=== PATIENT | male | born 2000 | race African-American/Black ===

== ENCOUNTER 2018-11-21 20:47 | Emergency (ER) | payer BC, OTHER ==
[2018-11-21 20:53] VITALS: BP 137/96; PULSE 62; TEMP 98.4; BMI 23.1
[2018-11-21] MEDS ORDERED: ACETAMINOPHEN 325 MG TABLET (FP) PO ONE (22:44)
[2018-11-21] MEDS ORDERED: ACETAMINOPHEN 325 MG TABLET (FP) ONE (22:47)
[2018-11-21] MEDS ORDERED: DIPHTH,PERTUSS(ACELL),TET 0.5 ML DISP.SYRIN IM ONE ×2 (23:29→23:51)
--- NOTE | 2018-11-21 23:29 | PDOC ---
*Physical Exam - Vital Signs Last Vital Signs Temp Pulse Resp BP Pulse Ox 98.4 F 62 18 137/96 100 11/21/18 20:50 11/21/18 20:50 11/21/18 20:50 11/21/18 20:50 11/21/18 20:50 ED Treatment Course - Medications Given in the ED: ED Medications Discontinued Medications Generic Name Dose Route Start Last Admin Trade Name Nkechi PRN Reason Stop Dose Admin Acetaminophen 975 mg 11/21/18 22:44 11/21/18 22:50 Tylenol - PO 11/21/18 22:45 975 mg ONCE ONE Administration Medical Decision Making - Medical Decision Making 11/21/18 23:28 18-year-old gentleman no past medical history presenting status post fall while playing basketball presenting with a laceration over the left eyebrow. There was one episode of vomiting, patient currently denies any headache, nausea vomiting, blurry vision, numbness, tingling, weakness. Laceration noted over the left eyebrow Will repair We'll defer head CT as patient is otherwise asymptomatic The patient was seen and evaluated in conjunction with PHILIP Wang under my direct supervision, ancillary studies were reviewed. I independently evaluated the patient and I agree with the plan as outlined by PHILIP Wang .
--- NOTE | 2018-11-22 00:17 | PDOC ---
History of Present Illness - General Chief Complaint: Laceration Stated Complaint: HEAD INJURY Time Seen by Provider: 11/21/18 22:44 History Source: Patient Exam Limitations: No Limitations Past History - Past Medical History Allergies/Adverse Reactions: Allergies Allergy/AdvReac Type Severity Reaction Status Date / Time No Known Allergies Allergy Verified 11/21/18 20:53 Home Medications: Ambulatory Orders No Home Medications 0 dose .ROUTE UTDICT 11/03/12 COPD: No - Immunization History Immunization Up to Date: Yes - Suicide/Smoking/Psychosocial Hx Smoking Status: No Smoking History: Never smoked Number of Cigarettes Smoked Daily: 0 *Physical Exam - Vital Signs Last Vital Signs Temp Pulse Resp BP Pulse Ox 98.4 F 62 18 137/96 100 11/21/18 20:50 11/21/18 20:50 11/21/18 20:50 11/21/18 20:50 11/21/18 20:50 - Physical Exam General Appearance: No: Apparent Distress HEENT: positive: EOMI, DEBRA, Other (around 1.5 cm laceration, linear, along R lateral eyebrow, no trauma to head noted) Neck: positive: Supple. negative: Tender midline Respiratory/Chest: positive: Lungs Clear, Normal Breath Sounds. negative: Respiratory Distress Cardiovascular: positive: Regular Rhythm, Regular Rate, S1, S2. negative: Murmur Gastrointestinal/Abdominal: positive: Normal Bowel Sounds, Soft. negative: Tender, Distended, Guarding, Rebound Musculoskeletal: positive: Normal Inspection Extremity: positive: Normal Range of Motion Neurologic: positive: dean of instruction II-XII NML intact, Fully Oriented, Alert, Normal Mood/ Affect, Motor Strength 5/5 Procedures - Laceration/Wound Repair Right Face Wound Length: to 2.5 cm Wound Explored: clean Wound's Depth, Shape: superficial Irrigated w/ Saline: Yes Betadine Prep: Yes Anesthesia: 1% Lidocaine w/ Epi Wound Debrided: minimal Wound Repaired With: Sutures Suture Size/Type: 5:0, proline Number of Sutures: 3 Layer Closure: No ED Treatment Course - Medications Given in the ED: ED Medications Discontinued Medications Generic Name Dose Route Start Last Admin Trade Name Freq PRN Reason Stop Dose Admin Acetaminophen 975 mg 11/21/18 22:44 11/21/18 22:50 Tylenol - PO 11/21/18 22:45 975 mg ONCE ONE Administration Diphtheria/Tetanus/Acell Pertussis 0.5 ml 11/21/18 23:29 11/21/18 23:52 Boostrix - IM 11/21/18 23:30 0.5 ml .ONCE ONE Administration Medical Decision Making - Medical Decision Making 18 y/o M with no sig pmh presents with lac to R eyebrow from today. Patient was playing basketball and tripped, falling, landing on ground; occurred around 8 PM today. Unsure if there was LOC but slightly dazed post event. Had 1 episode of NBNB emesis post event but nothing further. Denies visual/gait changes, numbness/tingling/weakness of extremities, BARBOSA, neck pain. Unsure of last tetanus Lac repaired Tetanus updated No need for CT scan as not suspicious for ICH or fractures Likely mild concussion 11/22/18 00:13 *DC/Admit/Observation/Transfer Diagnosis at time of Disposition: Eyebrow laceration Qualifiers: Encounter type: initial encounter Laterality: right Qualified Code(s): S01.111A - Laceration without foreign body of right eyelid and periocular area, initial encounter Concussion Qualifiers: Encounter type: initial encounter Loss of consciousness presence/duration: without LOC Qualified Code(s): S06.0X0A - Concussion without loss of consciousness, initial encounter - Discharge Dispostion Disposition: HOME Condition at time of disposition: Stable Decision to Admit order: No - Referrals - Patient Instructions Printed Discharge Instructions: DI for Closed Head Injury, DI for Laceration Repair Additional Instructions: Thank you for choosing [facility]. It was a pleasure taking care of you. Keep wound clean and dry for next 24 hours Then, may gently clean with soap and water Return in 5-7 days for suture removal Recommend bedrest for 2 days Follow-up with your doctor in 2 days Return to the Emergency Department if your symptoms worsen or persist or other concerning symptoms. - Post Discharge Activity Forms/Work/School Notes: Back to Work
== END 2018-11-22 00:30 | disposition home or self-care (01) ==
LOC: JER 20:47 → JERFT 20:47 → JER 11-22 00:30
PROC: 3E0234Z Introduction of Serum, Toxoid and Vaccine into Muscle, Percutaneous Approach (ICD-10-PCS; principal; 2018-11-21)
PROC: 0HQ1XZZ Repair Face Skin, External Approach (ICD-10-PCS; 2018-11-21)
DX: S01.111A Laceration without foreign body of right eyelid and periocular area, initial encounter (principal); S06.0X0A Concussion without loss of consciousness, initial encounter; W18.39XA Other fall on same level, initial encounter; Y93.67 Activity, basketball; Y92.310 Basketball court as the place of occurrence of the external cause; Y99.8 Other external cause status
CPT/HCPCS: 90715; 99283-25